=== PATIENT | female | born 1970 | race Caucasian/White ===

== ENCOUNTER 2019-03-19 16:00 | Outpatient (RCR) | payer BC | END 2019-03-21 | LOC: PT 16:00 | PROVIDERS: ATTEND Specialist | DX: M75.41 Impingement syndrome of right shoulder (principal); M47.812 Spondylosis without myelopathy or radiculopathy, cervical region ==

== ENCOUNTER 2019-03-26 16:00 | Outpatient (RCR) | payer BC | END 2019-04-20 | LOC: PT 16:00 | PROVIDERS: ATTEND Specialist | DX: M75.41 Impingement syndrome of right shoulder (principal); M47.812 Spondylosis without myelopathy or radiculopathy, cervical region | CPT/HCPCS: 97139 ==

== ENCOUNTER → 2019-03-28 | Outpatient (CLI) | payer BC ==
--- NOTE | 2019-03-28 13:12 | Diagnostic Imaging Report ---
Examination: MRI SPINE CERVICAL WO CONTRAST History: Right arm pain and numbness. Comparison studies: None Technique: Sagittal T1, T2 and IR, axial T2 and axial gradient echo intravenous contrast: None Findings: Alignment: Normal lordosis. No scoliosis. Cervicomedullary junction: No abnormalities. Patent foramen magnum. Soft tissues: No T2 hyperintense inflammatory changes. Spinal cord: Normal in size and signal from the foramen magnum through T1. Vertebrae: No fractures, infection or neoplasm. Degenerative changes: C1-C2: No abnormalities. C2-C3: No abnormalities. C3-C4: Central disc protrusion causes mild canal stenosis. Mild left uncovertebral results in mild left neural foraminal narrowing. No right foraminal narrowing. C4-C5: Right central disc protrusion results in mild canal stenosis. Bilateral uncovertebral results in mild right and moderate left neural foraminal narrowing. C5-C6: Large right central disc protrusion results in moderate to severe canal stenosis. Neural foraminal narrowing. C6-C7: Central disc protrusion superimposed on a diffuse disc osteophyte complex and mild ligamentum flavum thickening result in mild right and moderate left neural foraminal narrowing and moderate canal stenosis. C7-T1: No abnormalities. IMPRESSION: 1. Degenerative disc protrusions from C3-C4 through C6-C7 with moderate to severe canal stenosis C5-C6 and moderate canal stenosis at C6-C7. 2. Moderate left foraminal narrowing at C4-C5 and C6-C7. Signed by: Dr. Katya Rendon M.D. on 03/28/2019 1:09 PM
== END ==
LOC: MRI 08:18
PROVIDERS: ATTEND Specialist
DX: M47.812 Spondylosis without myelopathy or radiculopathy, cervical region (principal)
CPT/HCPCS: 72141

== ENCOUNTER → 2020-01-31 | Outpatient (CLI) | payer BC ==
[~2020-01-31] MED LIST: BIOTIN800 MCG PO; CALCIUM 500+D1 EACH PO; MULTIVITAMINS1 EAC7 PO
== END ==
LOC: MAMMO 10:05
PROVIDERS: ATTEND Obstetrics & Gynecology
DX: Z12.31 Encounter for screening mammogram for malignant neoplasm of breast (principal)
CPT/HCPCS: 77067

== ENCOUNTER → 2020-02-21 | Outpatient (CLI) | payer BC | LOC: MAMMO 10:09 | PROVIDERS: ATTEND Obstetrics & Gynecology | DX: N64.89 Other specified disorders of breast (principal) ==

== ENCOUNTER 2020-02-25 11:50 | Emergency (ER) | payer BC ==
[~2020-02-25] VITALS: Ht 160 cm; Wt 88.0 kg
--- NOTE | 2020-02-25 11:57 | Emergency Department Note ---
History of Present Illnes History of Present Illness Chief Complaint: COVID PUI History of Present Illness This is a 50 year old female Chief Complaint Comment EXPOSURE TO COVID MONDAY. AAOX4. AMBULATORY. . 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 Any updates have been documented here. Past Medical History Recent Fever: No Clinical Suspicion of Infectio: No New/Unexplained Change in Ment: No Past Surgical History: Tubal Ligation Other Surgery: GASTRIC SLEEVE, TONSILLECTOMY Review of Systems Review of Systems Constitutional: Reports no symptoms EENTM: Reports no symptoms Cardiovascular: Reports no symptoms Respiratory: Reports no symptoms Gastrointestinal: Reports no symptoms Genitourinary: Reports no symptoms Musculoskeletal: Reports no symptoms Integumentary: Reports no symptoms Neurological: Reports no symptoms Psychological: Reports no symptoms Endocrine: Reports no symptoms Hematological/Lymphatic: Reports no symptoms Physical Exam Related Data Allergies: Coded Allergies: No Known Allergies (Unverified , 05/21/19) Triage Vital Signs Vital Signs Date Time Temp Pulse Resp B/P (MAP) Pulse Ox O2 Delivery O2 Flow Rate FiO2 02/25/20 11:51 98.4 71 16 131/80 100 Room Air Vital signs reviewed: Yes Physical Exam CONSTITUTIONAL Constitutional: Present well-developed, Present well-nourished HENT HENT: Present normocephalic, Present atraumatic, Present oropharynx clear/moist, Present nose normal HENT L/R: Present left ext ear normal, Present right ext ear normal EYES Eyes: Reports conjunctivae normal, Reports EOM normal NECK Neck: Present ROM normal PULMONARY Pulmonary: Present effort normal; Absent respiratory distress CARDIOVASCULAR Cardiovascular: Present normal rate GASTROINTESTINAL GENITOURINARY Genitourinary: Present exam deferred SKIN Skin: Present dry; Absent pale MUSCULOSKELETAL Musculoskeletal: Present ROM normal NEUROLOGICAL Neurological: Present alert, Present oriented x 3, Present no gross motor or sensory deficits PSYCHOLOGICAL Psychological: Present mood/affect normal, Present judgement normal Assessment & Plan Medical Decision Making MDM 50-year-old female presents for pelvic test in order to return back to work. Patient has no complaints. The swab was obtained and results given to patient. Patient is appropriate for discharge. Reassessment Reassessment time: 11:56 Reassessment Well appearing, NAD Assessment & Plan Final Impression: (1) Encounter for screening laboratory testing for COVID-19 virus Depart Disposition: HOME, SELF-CARE Last Vital Signs Date Time Temp Pulse Resp B/P (MAP) Pulse Ox O2 Delivery O2 Flow Rate FiO2 02/25/20 11:51 98.4 71 16 131/80 100 Room Air Home Meds Reported Medications Calcium Carbonate/Vitamin D3 (CALCIUM 500+D TABLET CHEW) 1 Each Tab.chew, 1 TAB PO DAILY 05/21/19 Multivitamin (MULTIVITAMINS) 1 Each Capsule, 1 CAP PO DAILY 05/21/19 Biotin (BIOTIN) 800 Mcg Tablet, PO DAILY 05/21/19 MICHELLE BAKER MD Feb 25, 2020 11:57
--- OUTSIDE RECORDS SUMMARY | 2020-02-25 11:58 | XMS REPORT | Continuity of Care Document ---
Author Author [facility] t Organization [facility] Address [address] [place] [address] Phone Unavailable Care Team Providers Care Order Tracer Name Role Phone NO, PCP PCP Unavailable Mariam ALVARES Attphys Unavailable JI MERAZ Attphys Unavailable JUAN MIGUEL PERERAphyaaliyah Unavailable Payers Payer Name Policy Type Policy Number Effective Date Expiration Date Aaliyah eid [facility] [id number] 2017 00:00:00 [facility] Problems This patient has no known problems. Allergies, Adverse Reactions, Alerts This patient has no known allergies or adverse reactions. Medications Ordered Medication Name Filled Medication Name Start Date Stop Da te Current Medication? Ordering Clinician Indication Dosage Frequency Signature (SIG) Comments Components Source Biotin 800 Mcg Tablet Biotin 800 Mcg Tablet Yes Daily [facility] Calcium Carbonate/Vitamin D3 (Calcium 500+D Tablet Lindsey w) 1 Each Tab.chew Calcium Carbonate/Vitamin D3 (Calcium 500+D Tablet Chew) 1 Each Tab.chew Yes 1 Daily [facility] Multivitamin (Multivitamins) 1 Each Capsule Multivitam in (Multivitamins) 1 Each Capsule Yes 1 Daily [facility] Procedures Procedure Date / Time Performed Performing Clinician [facility] e Breast reduction, bilateral 2019-05-23 00:00:00 JI MERAZ [facility] X-ray of chest, two views 2019-05-21 00:00:00 JI MERAZ [facility] Magnetic resonance imaging of cervical spine without c ontrast 2019-03-28 00:00:00 JUAN MIGUEL PERERA [facility] Encounters Start Date/Time End Date/Time Encounter Type Admission Type [facility] Care Department Encounter ID Source 2016-11-30 09:43:00 Inpatient [facility] MED 17 [id number] [facility] 2019-05-23 13:32:00 2019-05-24 12:34:00 Discharged Inpatient (obs) 3 JI MERAZ [facility] [id number] [facility] 2019-03-25 16:26:00 2019-04-20 23:59:00 Discharged Recurring [facility] [id number] [facility] 2019-03-28 08:18:00 2019-03-28 08:18:00 Registered Clinic 3 JUAN MIGUEL PERERA [facility] [id number] [facility] 2019-02-25 17:01:00 2019-03-21 23:59:00 Discharged Recurring [facility] [id number] [facility] 2016-11-04 08:53:00 2016-11-04 08:53:00 Outpatient [facility] [id number] [facility] Results Test Description Test Time Test Comments Results Result Comments Source US BREAST LIMITED LEFT 2020-02-21 12:39:00 [place] [id number] Patient Name: JUS GIRARD MR #: [id number] : 1970 Age/Sex: 50/F Req #: [id number] Adm Physician: Ordered by: JUAN MIGUEL ALVARES MD Report #: [id number] [facility]: Procedure: [id number] US/US BREAST LIMITED LEFT Exam Date: Exam Time: REPORT STATUS: Signed #[id number] - USBRELIMLT ULTRASOUND OF THE LEFT BREAST : 02/21/2020 Comparison is made to exams dated: 02/21/2020 mammogram and 01/31/2020 mammogram - [facility]. Color flow and real-time ultrasound were performed on the left breast. Ellis scale images of the real-time examination were reviewed. IMPRESSION: BENIGN Left breast subcutaneous soft tissue edema and skin thickening. There is no sonographic evidence of malignancy. A 1 year screening mammogram is recommended. REEMA LOPEZ M.D. kw/:02/21/2020 13:31:00 Photographic Editor: Ramirez Jesus [facility], [facility] letter sent: Compared to Prior B9 Ultrasound BI-RADS: 2 Benign Dictated By: REEMA LOPEZ MD 1331 Transcribed By: ORLANDO on 02/21/20 1331 COPY TO: JUAN MIGUEL ALVARES MD MAMMOGRAPHY DIGITAL DX UNI LT 2020-02-21 10:58:00 [place] [address] Patient Name: JUS GIRARD MR #: [id number] : 1970 Age/Sex: 50/F Req #: [id number] [facility] Physician: Ordered by: JUAN MIGUEL ALVARES MD Report #: [id number] Location: MAMMO Room/Bed: Procedure: [id number] MG/MAMMOGRAPHY DIGITAL DX UNI LT Exam Date: 02/21/20 Exam Time: 1023 REPORT STATUS: Signed #[id number] - [id number] #UNILATERAL LEFT DIGITAL DIAGNOSTIC MAMMOGRAM WITH SPOT COMPRESSION: 02/21/2020 Comparison is made to exam dated: 01/31/2020 mammogram - [facility]. There are scattered fibroglandular elements in the left breast. There are benign calcifications in the left breast. There also are post operative findings in the left breast. Left breast edema with skin thickening. No significant masses, calcifications, or other findings are seen in the breast. There has been no significant interval change. IMPRESSION: BENIGN Left breast edema and soft tissue thickening, as demonstrated on ultrasound performed on the same day. There is no mammographic evidence of malignancy. A 1 year screening mammogram is recommended. The patient will be notified by letter of the results. REEMA LOPEZ M.D. kw/:02/21/2020 13:27:56 Photographic Editor: Leanne AVILA(Murray)(Evelyn), [facility] letter sent: Compared to Prior B9 Mammogram BI-RADS: 2 Benign Dictated By: REEMA LOPEZ MD 26 Transcribed By: ORLANDO on 02/21/20 1327 COPY TO: JUAN MIGUEL ALVARES MD MAMMOGRAPHY DIGITAL SCR BILAT 2020-01-31 15:12:00 [place] [address] Patient Name: JUS GIRARD MR #: [id number] : 1970 Age/Sex: 50/F Req #: [id number] [facility] Physician: Ordered by: JUAN MIGUEL ALVARES MD Report #: [id number] Location: MAMMO Room/Bed: Procedure: [id number] MG/MAMMOGRAPHY DIGITAL SCR BILAT Exam Date: 01/31/20 Exam Time: 1450 REPORT STATUS: Signed #[id number] - [id number] #BILATERAL DIGITAL SCREENING MAMMOGRAM WITH CAD: 01/31/2020 CLINICAL: Routine screening. No prior exams were available for comparison. There are scattered fibroglandular elements in both breasts. Current study was also evaluated with a Computer Aided Detection (CAD) system. There is an asymmetry in the left breast middle depth inferior region seen on the mediolateral oblique view only. There is skin thickening associated with the asymmetry. No other significant masses, calcifications, or other findings are seen in either breast. IMPRESSION: INCOMPLETE: NEEDS ADDITIONAL IMAGING EVALUATION The asymmetry in the left breast is indeterminate. The patient will be contacted by the Mammography Department to schedule this appointment. REEMA martinez/orlando:02/11/2020 10:23:41 Photographic Editor: Leanne AVILA(Murray)(Evelyn), [facility] letter sent: Additional Imaging Needed Mammogram BI-RADS: 0 Indeterminate Dictated By: REEMA LOPEZ MD 1023 Transcribed By: ORLANDO on 02/11/20 1023 COPY TO: JUAN MIGUEL ALVARES MD Urine Test 2019-05-23 06:13:00 Test Item Urine Test (test code = 2106-3) NEGATIVE [facility]GATIVE [facility] [id number] 09:32:00 [facility] [address] [place] [address] Patient Name: JUS GIRARD MR #: [id number] : 0 1970 Age/Sex: 49/F Req #: [id number] Adm Physician: Ordered by: JI MERAZ MD Report #: [id number] Location: OR Room/Bed: Procedure: [id number] DX/CHEST 2 VIEWS Exam Date: 05/21/19 Exam Time : 0835 REPORT STATUS: Signed EXA MINATION: CHEST 2 VIEWS INDICATION: Pre-operative COMPARISON: Non e FINDINGS: LINES/TUBES:None LUNGS:The lungs are well-inflat ed. No focal consolidation or pulmonary edema. PLEURA:No pleural effusion o r pneumothorax. MEDIASTINUM:The cardiomediastinal silhouette appears normal in size and shape. BONES/SOFT TISSUES:No acute osseous injury. ABDOME N:No free air under the diaphragm. Surgical clips overlie the left upper quadr ant. IMPRESSION: No focal pneumonia or pulmonary edema. Signed b y: Reema Lopez MD on 05/21/2019 9:33 AM Dictated By: REEMA LOPEZ MD Elect ronically Signed By: REEMA LOPEZ MD on 05/21/19932 Transcribed By: SAUL on 05/21/19932 COPY TO: JI MERAZ MD MRI SPINE CERVICAL WO 2019-03-28 12:56:00 [place] [address] Patient Name: JUS GIRARD MR #: [id number] : 1970 Age/Sex: 49/F Req #: [id number] Adm Physician: Ordered by: JUAN MIGUEL PERERA MD Report #: [id number] Location: MRI Room/Bed: Procedure: [id number] MRI/MR I SPINE CERVICAL WO Exam Date: Exam Time: REPORT STATUS: Signed Examination: MRI S PINE CERVICAL WO CONTRAST History: Right arm pain and numbness. Compariso n studies: None Technique: Sagittal T1, T2 and IR, axial T2 and axial gradient echo intravenous contrast: None Findings: Alignment: Normal lordo sis. No scoliosis. Cervicomedullary junction: No abnormalities. Patent forame n magnum. Soft tissues: No T2 hyperintense inflammatory changes. Spinal cord : Normal in size and signal from the foramen magnum through T1. Vertebrae: No fractures, infection or neoplasm. Degenerative changes: C1-C2: No abnormalities. C2-C3: No abnormalities. C3-C4: Central disc prot rusion causes mild canal stenosis. Mild left uncovertebral results in mild le ft neural foraminal narrowing. No right foraminal narrowing. C4-C5: Rig ht central disc protrusion results in mild canal stenosis. Bilateral uncoverte bral results in mild right and moderate left neural foraminal narrowing. C5-C6: Large right central disc protrusion results in moderate to severe canal stenosis. Neural foraminal narrowing. C6-C7: Central disc protrusion superimposed on a diffuse disc osteophyte complex and mild ligamentum flavum thickening result in mild right and moderate left neural foraminal narrowing a nd moderate canal stenosis. C7-T1: No abnormalities. IMPRESSION: 1. Degenerative disc protrusions from C3-C4 through C6-C7 with moderate to severe canal stenosis C5-C6 and moderate canal stenosis at C6-C7. 2. Moder ate left foraminal narrowing at C4-C5 and C6-C7. Signed by: Dr. Prashant hayes M.D. on 03/28/2019 1:09 PM Dictated By: PRASHANT Gallegos 1308 Trans cribed By: SAUL on 03/28/19 130 COPY TO: JUAN MIGUEL PERERA MD
== END 2020-02-25 12:19 | disposition home or self-care (01) ==
LOC: ER 11:55
DX: Z20.828 Contact with and (suspected) exposure to other viral communicable diseases (principal); Z11.59 Encounter for screening for other viral diseases
CPT/HCPCS: 99283; U0002

== ENCOUNTER → 2020-05-18 | Outpatient (CLI) | payer OTHER ==
[~2020-05-18] MED LIST changes: +COVID-19 VACC, MRNA(MODERNA)/PF 100 MCG/0.5 ML VIAL IM ONE
== END ==
LOC: VACCPMC 12:06
DX: Z23 Encounter for immunization (principal); Z20.828 Contact with and (suspected) exposure to other viral communicable diseases

== ENCOUNTER → 2020-06-23 | Outpatient (CLI) | payer OTHER | LOC: VACCPMC 08:02 | DX: Z23 Encounter for immunization (principal); Z20.822 Contact with and (suspected) exposure to COVID-19 | CPT/HCPCS: 0012A; 91301 ==

== ENCOUNTER → 2021-01-04 | Outpatient (CLI) | payer OTHER ==
[~2021-01-04] MED LIST changes: -COVID-19 VACC, MRNA(MODERNA)/PF 100 MCG/0.5 ML VIAL IM ONE
== END ==
LOC: US 07:02
PROVIDERS: ATTEND Internal Medicine
DX: R10.9 Unspecified abdominal pain (principal); R22.43 Localized swelling, mass and lump, lower limb, bilateral
CPT/HCPCS: 76700; 93970

== ENCOUNTER → 2021-01-06 | Outpatient (CLI) | payer OTHER | LOC: MAMMO 12:21 | PROVIDERS: ATTEND Internal Medicine | DX: Z12.31 Encounter for screening mammogram for malignant neoplasm of breast (principal) | CPT/HCPCS: 77067 ==

== ENCOUNTER → 2021-01-14 | Outpatient (CLI) | payer OTHER | LOC: US 11:25 | PROVIDERS: ATTEND Internal Medicine | DX: N60.02 Solitary cyst of left breast (principal); N60.01 Solitary cyst of right breast ==

== ENCOUNTER → 2021-02-18 | Outpatient (CLI) | payer OTHER | LOC: US 10:08 | PROVIDERS: ATTEND Internal Medicine | DX: N63.10 Unspecified lump in the right breast, unspecified quadrant (principal) | CPT/HCPCS: 19083; 77065; 88305; A4648 ==

== ENCOUNTER → 2021-03-18 | Outpatient (CLI) | payer OTHER ==
[~2021-03-18] MED LIST changes: +COVID-19 VACC, MRNA(MODERNA)/PF 100 MCG/0.5 ML VIAL IM ONE
== END ==
LOC: VACCPMC 07:27
DX: Z23 Encounter for immunization (principal); Z20.822 Contact with and (suspected) exposure to COVID-19

== ENCOUNTER 2022-02-26 16:50 | Observation (INO) | payer BC, OTHER ==
[~2022-02-26] VITALS: Ht 160 cm; Wt 79.8 kg
[~2022-02-26 16:50] MED LIST changes: -COVID-19 VACC, MRNA(MODERNA)/PF 100 MCG/0.5 ML VIAL IM ONE
[2022-02-26] MEDS ORDERED: ONDANSETRON HCL INJ 2MG/ML 2ML 2 MG/ML VIAL IV STA (17:04)
[2022-02-26] MEDS ORDERED: SODIUM CHLORIDE 0.9% 1000ML 1,000 ML IV ONE ×2 (17:15→18:15)
[2022-02-26] MEDS ORDERED: ACETAMINOPHEN 325 MG TAB PO ONE (17:15)
[2022-02-26 17:23] LABS: BASOPHILS % 0.2 % (0.0-1.0); EOSINOPHILS % 0.1 % (0.0-6.0); HEMOGLOBIN 11.4 g/dL (12.0-16.0); LYMPHOCYTES # (AUTO) 1.3 (1.0-3.2); LYMPHOCYTES % 7.5 % (18.0-39.1); MEAN CORPUSCULAR HGB CONC 32.6 g/dL (31-35); MEAN CORPUSCULAR VOLUME 95.1 fL (81-99); MONOCYTES # (AUTO) 1.6 (0.2-0.8); MONOCYTES % 9.8 % (4.4-11.3); NEUTROPHILS # (AUTO) 13.7 (2.1-6.9); PLATELET COUNT 412 x10e3/uL (140-360); RED BLOOD COUNT 3.68 x10e6/uL (3.6-5.1)
[2022-02-26 17:30] LABS: INR 1.15; PROTHROMBIN TIME 15.7 seconds (11.9-14.5)
[2022-02-26 17:37] LABS: ALANINE AMINOTRANSFERASE 16 IU/L (0-55); ALBUMIN 2.7 g/dL (3.5-5.0); ALBUMIN/GLOBULIN RATIO 0.6 (0.8-2.0); ALKALINE PHOSPHATASE 158 IU/L (40-150); ANION GAP 19.4 mmol/L (8-16); BLOOD UREA NITROGEN 13 mg/dL (7-26); BUN/CREATININE RATIO 15 (6-25); CALCIUM 9.4 mg/dL (8.4-10.2); CARBON DIOXIDE 23 mmol/L (22-29); CHLORIDE 100 mmol/L (98-107); CREATINE KINASE 29 IU/L (29-168); CREATININE, SERUM 0.84 mg/dL (0.57-1.11); GLUCOSE 134 mg/dL (74-118); POTASSIUM 3.4 mmol/L (3.5-5.1); SODIUM 139 mmol/L (136-145)
[2022-02-26 18:04] LABS: INFLUENZAE A&B ANTIGEN (RAPID) POSITIVE FLU B (NEGATIVE); RESPIRATORY SYNC. VIRUS NEGATIVE (NEGATIVE)
[2022-02-26 18:10] LABS: CLARITY,URINE HAZY (CLEAR); COLOR,URINE YELLOW (YELLOW); KETONES,URINE NEGATIVE (NEGATIVE); LEUKOCYTE ESTERASE ,URINE SMALL (NEGATIVE); NITRITE,URINE POSITIVE (NEGATIVE); PROTEIN,URINE DIPSTICK 2+ (NEGATIVE)
[2022-02-26 18:11] LABS: URINE UROBILINOGEN 1 mg/dL (0.2 - 1); WBC,URINE (MAN) >50 /HPF (0-5)
[2022-02-26 18:12] LABS: AMORPHOUS SEDIMENT,URINE FEW (FEW); BACTERIA,URINE MODERATE /HPF; EPITHELIAL CELLS,URINE FEW /LPF; MUCUS,URINE FEW (RARE)
[2022-02-26] MEDS ORDERED: ACETAMINOPHEN 325 MG TAB PO PRN (18:15)
[2022-02-26] MEDS: SODIUM CHLORIDE 0.9% 1000ML 1,000 ML IV SCH ×2 (18:45→22:18)
[2022-02-26 20:20] VITALS: BP 119/69
[2022-02-26 20:40] VITALS: BP 119/69
[2022-02-27 00:46] VITALS: BP 101/56
[2022-02-27 04:22] VITALS: BP 111/66
[2022-02-27] MEDS: SODIUM CHLORIDE 0.9% 1000ML 1,000 ML IV SCH ×2 (06:25→15:30)
[2022-02-27] MEDS: ONDANSETRON HCL INJ 2MG/ML 2ML 2 MG/ML VIAL IV PRN ×2 (07:02→12:51)
[2022-02-27] MEDS ORDERED: KETOROLAC TROMETHAMINE 30 MG/ML VIAL IV PRN (07:45)
[2022-02-27] MEDS ORDERED: KETOROLAC TROMETHAMINE 30 MG/ML VIAL IV NR (07:45)
[2022-02-27 08:27] VITALS: BP 119/69
[2022-02-27 09:09] VITALS: BP 119/69
[2022-02-27 09:28] LABS: BASOPHILS # (AUTO) 0.1 (0.0-0.1); BASOPHILS % 0.4 % (0.0-1.0); EOSINOPHILS # (AUTO) 0.1 (0.0-0.4); EOSINOPHILS % 0.4 % (0.0-6.0); HEMATOCRIT 30.3 % (34.2-44.1); HEMOGLOBIN 10.1 g/dL (12.0-16.0); LYMPHOCYTES # (AUTO) 1.8 (1.0-3.2); LYMPHOCYTES % 9.6 % (18.0-39.1); MEAN CORPUSCULAR HEMOGLOBIN 31.5 pg (28-32); MEAN CORPUSCULAR HGB CONC 33.3 g/dL (31-35); MEAN CORPUSCULAR VOLUME 94.4 fL (81-99); MONOCYTES # (AUTO) 1.9 (0.2-0.8); NEUTROPHILS # (AUTO) 14.8 (2.1-6.9); NEUTROPHILS % 78.8 % (38.7-80.0); PLATELET COUNT 387 x10e3/uL (140-360); RED BLOOD COUNT 3.21 x10e6/uL (3.6-5.1); RED CELL DISTRIBUTION WIDTH 12.5 % (11.7-14.4)
[2022-02-27 09:51] LABS: ALBUMIN 2.3 g/dL (3.5-5.0); ALBUMIN/GLOBULIN RATIO 0.6 (0.8-2.0); ANION GAP 12.8 mmol/L (8-16); CALCIUM 8.4 mg/dL (8.4-10.2); CREATININE, SERUM 0.66 mg/dL (0.57-1.11); POTASSIUM 3.8 mmol/L (3.5-5.1)
[2022-02-27] MEDS ORDERED: ONDANSETRON ODT8 MG PO (10:31)
[2022-02-27] MEDS ORDERED: KETOROLAC TROME10 MG PO (10:31)
[2022-02-27] MEDS ORDERED: FOSFOMYCIN TROMETHAMINE 3 GM PACKET PO ONE (11:30)
[2022-02-27 12:31] VITALS: BP 99/55
[2022-02-27 16:54] VITALS: BP 120/59
== END 2022-02-27 19:53 | disposition home or self-care (01) ==
LOC: ER 17:00 → ERHOLD 18:10 → MED/SURG3 20:07
PROVIDERS: ADMIT Internal Medicine; ATTEND Internal Medicine
DX: J10.1 Influenza due to other identified influenza virus with other respiratory manifestations (principal); Z98.84 Bariatric surgery status; N30.00 Acute cystitis without hematuria; B96.20 Unspecified Escherichia coli [E. coli] as the cause of diseases classified elsewhere; D50.9 Iron deficiency anemia, unspecified; Z20.822 Contact with and (suspected) exposure to COVID-19
CPT/HCPCS: 36415 ×2; 71045; 80053 ×2; 81001; 82550; 82553; 83605 ×2; 83735; 84484; 85025 ×2; 85610; 85730; 87040; 87086; 87186; 87400; 87420; 93005; 99284; G0378 ×2; J0696; J1885; J2405; J7030 ×2; U0002

== ENCOUNTER → 2022-03-14 | Outpatient (CLI) | payer BC ==
[~2022-03-14] MED LIST changes: +KETOROLAC TROME10 MG PO; +ONDANSETRON ODT8 MG PO
== END ==
LOC: MAMMO 11:40
PROVIDERS: ATTEND Internal Medicine
DX: Z12.31 Encounter for screening mammogram for malignant neoplasm of breast (principal)
CPT/HCPCS: 77067

== ENCOUNTER → 2023-03-21 | Outpatient (REF) | payer BC | LOC: MAMMO 09:57 | PROVIDERS: ATTEND Internal Medicine | DX: Z12.31 Encounter for screening mammogram for malignant neoplasm of breast (principal) | CPT/HCPCS: 77067 ==

== ENCOUNTER → 2024-09-16 | Outpatient (REF) | payer BC | LOC: MAMMO 14:08 | PROVIDERS: ATTEND Internal Medicine | DX: Z12.31 Encounter for screening mammogram for malignant neoplasm of breast (principal) | CPT/HCPCS: 77067 ==